=== PATIENT | male | born 1945 | race Caucasian/White ===

== ENCOUNTER 2016-12-20 10:46 | Emergency (ER) | payer MEDICARE ==
--- NOTE | 2016-12-20 21:23 | RAD ---
LEFT HIP TWO VIEWS: 12/20/16 No fracture was seen. All bones appear intact. Minor degenerative changes are present in the hip promise nt, but the hip joint space is normal in width. IMPRESSION: No acute traumatic change. POS: HOME
--- NOTE | 2016-12-20 21:24 | RAD ---
LEFT FEMUR 12/20/16 Various views cover the femur in the AP and lateral projections. No fracture was seen. No opaque for eign body was seen in the soft tissues. IMPRESSION: No acute findings. POS: HOME
== END 2016-12-20 11:59 | disposition home or self-care (01) ==
LOC: BURERS 10:46
DX: S70.12XA Contusion of left thigh, initial encounter (principal); E78.5 Hyperlipidemia, unspecified; I48.91 Unspecified atrial fibrillation; Z79.899 Other long term (current) drug therapy; W55.22XA Struck by cow, initial encounter

== ENCOUNTER 2019-12-08 11:05 | Outpatient (CLI) | payer MEDICARE ==
--- NOTE | 2019-12-08 14:03 | RAD ---
RIGHT HAND 3 VIEWS: DATE: 12/08/2019. FINDINGS: Degenerative changes are present in the 1st through 34d MCP joints consisting of some osteophytes and joint space narrowing. The 4th and 5th MCP joints are relatively unaffected. No fracture was seen. The carpal relationships appear normal. There may be a small cyst in the triquetrum. IMPRESSION: Degenerative changes as noted, particularly in the 1st through 3rd metacarpophalangeal joints. I can not confirm any actual erosions at this time. POS: HOME
--- NOTE | 2019-12-08 14:04 | RAD ---
RIGHT WRIST 3 VIEWS: DATE: 12/08/2019. FINDINGS: No fracture was seen. Some degenerative changes are present in the 1st MCP joint without obvious ero sions. The carpal bones were unremarkable in appearance. IMPRESSION: No acute finding. POS: HOME
== END 2019-12-08 11:06 | disposition home or self-care (01) ==
LOC: BURRAD 11:05
PROVIDERS: ATTEND Nurse Practitioner
DX: M79.644 Pain in right finger(s) (principal); M19.041 Primary osteoarthritis, right hand

== ENCOUNTER 2020-06-17 12:10 | Emergency (ER) | payer MEDICARE ==
[2020-06-17 12:46] LABS: #Basophils 0.1 thou/uL (0.0-0.2); #Eosinphils 0.2 thou/uL (0.0-0.7); #Lymphocytes 1.1 thou/uL (1.20-3.40); #Monocytes 0.6 thou/uL (0.11-0.59); #Neutrophils 11.1 thou/uL (1.40-6.50); %Basophils 0.9 % (0.0-1.0); %Eosinophils 1.8 % (0.0-10.0); %Lymphocytes 8.6 % (21.0-51.0); %Monocytes 4.4 % (0.0-10.0); %Neutrophils 84.2 % (42.0-75.0); Hemoglobin 16.2 g/dL (14.0-18.0); Mean Corpuscular HGB CONC 33.5 g/dL (32.0-36.0); Mean Corpuscular Hemoglobin 30.7 pg (27.0-31.0); Mean Corpuscular Volume 91.8 fL (78.0-98.0); Mean Platelet Volume 7.1 fL (7.4-10.4); Platelet Count 187 thou/uL (130-400); RBC Distribution Width 12.7 % (11.5-14.5); Red Blood Cell (RBC) Count 5.27 mill/uL (4.70-6.10); White Blood Cell (WBC) Count 13.2 thou/uL (4.8-10.8)
[2020-06-17 13:00] LABS: Bilirubin Negative (Negative); Blood, Urine Trace (Negative); Clarity Slightly Cloudy (Clear); Glucose, Urine (Dipstick) Negative (Negative); Ketone, Urine Negative (Negative); Leukocyte Trace (Negative); Nitrite Negative (Negative); Protein, Urine (Dipstick) Negative (Neg-Trace); Urobilinogen 0.2 mg/dL (Less than 2); pH, Urine 5.5 (5.0-9.0)
[2020-06-17 13:02] LABS: ALT (SGPT) 25 U/L (8-55); AST (SGOT) 35 U/L (5-34); Albumin 3.9 g/dL (3.4-4.8); Alkaline Phosphatase 56 U/L (40-110); Anion Gap 15 mmol/L (10-20); BUN (Urea Nitrogen) 27 mg/dL (8.4-25.7); Calc. Creatinine Clearance 0 mL/min (70-130); Calcium 8.7 mg/dL (7.8-10.44); Carbon Dioxide 26 mmol/L (23-31); Chloride 103 mmol/L (98-107); Globulin 2.9 g/dL (2.4-3.5); Glucose 151 mg/dL (83-110); Lipase 27 U/L (8-78); Potassium 5.5 mmol/L (3.5-5.1); Protein, Total 6.8 g/dL (5.8-8.1); Sodium 138 mmol/L (136-145)
[2020-06-17 13:18] LABS: RBC/HPF 0-3 HPF (0-3); WBC/HPF 0-3 HPF (0-3)
[2020-06-17 13:19] LABS: Bacteria/HPF None Seen HPF (None Seen); Sperm/HPF 1+ HPF (None Seen); Squamous Epithelial 0-3 HPF (0-3)
--- NOTE | 2020-06-17 14:00 | CT ---
CT OF THE BRAIN WITHOUT CONTRAST: 06/17/[address] was done following trauma. The ventricles are normal in size with no shift. No intr acranial bleeding or extra-axial hematoma was seen. There is no sign of mass, edema, or stroke. The v isible paranasal sinuses are clear. The skull appears intact. IMPRESSION: No acute intracranial findings. Preliminary report called to Dr. Barrett at 1341 on 06/17/20. POS: HOME
[2020-06-17] MEDS ORDERED: Acetaminophen 500 MG TAB ONE (14:03)
--- NOTE | 2020-06-17 14:09 | CT ---
CT CHEST, ABDOMEN AND PELVIS WITH CONTRAST: 06/17/[address] of the chest, abdomen and pelvis was done with IV contrast following trauma. The contrast w as substantially reduced due to a slightly GFR. CT OF THE THORAX: Spiral CT of the thorax shows a nondisplaced fracture of the left 7th rib anterolaterally. There is s ome soft tissue swelling over it. A few equivocal lines were seen near the costochondral junction of the right 6th rib which may or may not be significant. There was no evidence of pneumothorax, pleural effusion, or parenchymal contusion. The lungs were clear except for some minor areas of dependent a telectasis. In addition, one sees separation of the costochondral junction of the first rib from the manubrium on the left side. This is best displayed on axial slices 20 and 21. This is a immediately below the ta rnoclavicular joint. There is no displacement of either sternoclavicular joint, though the one on the left may be marginally wider than the right. There is certainly no displacement, however. The remain teresa of the sternum and the left ribs appeared intact. The thoracic spine showed no acute fracture, on ly degenerative changes. CT ABDOMEN AND PELVIS: The liver, spleen, pancreas, gallbladder, adrenal glands, kidneys and aorta were unremarkable with no acute traumatic findings visible. There was no sign of laceration or hematoma to any major organ. Th e left 7th rib fracture overlies a portion of the liver, but the liver in this location appears ange l. There is probably at least one and possibly two cysts in the left kidney, the largest measuring 1. 4 cm. Ultrasound would be needed to confirm the cystic nature of it. This could be done electively. CT of the pelvis shows no pelvic masses, hemorrhage, or other traumatic change. The hips and bony pel vis appear intact. The SI joints appear normal. No lumbar spine fractures were seen, however, there i s a bulging partially calcified disc at L3-L4 protruding posteriorly, almost certainly longstanding. The prostate is quite large. It is 5.4 cm wide. IMPRESSION: 1. Nondisplaced fracture of the right 7th rib anterolaterally. 2. Separation at the costochondral junction of the left first rib. Left sternoclavicular joint i s slightly wider than the right, but there is no displacement at all. No other left sided rib fractur es were seen. 3. No evidence of laceration or hematoma to any major organ. 4. Probable left renal cyst. 5. Prostatic enlargement. Findings discussed with Dr. Barrett at 1341 on 06/17/20. POS: HOME
[2020-06-17] MEDS ORDERED: Iopamidol 370 76% 100 ML VIAL ONE (14:46)
[2020-06-17 14:52] LABS: Anion Gap 15 mmol/L (10-20); BUN (Urea Nitrogen) 26 mg/dL (8.4-25.7); Calc. Creatinine Clearance 0 mL/min (70-130); Calcium 8.7 mg/dL (7.8-10.44); Carbon Dioxide 24 mmol/L (23-31); Chloride 104 mmol/L (98-107); Glucose 134 mg/dL (83-110); Potassium 4.4 mmol/L (3.5-5.1); Sodium 139 mmol/L (136-145)
== END 2020-06-17 15:26 | disposition home or self-care (01) ==
LOC: BURERS 12:10
DX: S22.43XA Multiple fractures of ribs, bilateral, initial encounter for closed fracture (principal); I25.10 Atherosclerotic heart disease of native coronary artery without angina pectoris; I48.91 Unspecified atrial fibrillation; E78.5 Hyperlipidemia, unspecified; Z79.899 Other long term (current) drug therapy; W55.29XA Other contact with cow, initial encounter
CPT/HCPCS: 36415; 70450; 71260; 74177; 80053; 81003; 81015; 83690; 85025; 93005; Q9967

== ENCOUNTER 2022-06-01 09:01 | Emergency (ER) | payer MEDICARE | END 2022-06-01 09:53 | disposition home or self-care (01) | LOC: BURERS 09:01 | DX: J22 Unspecified acute lower respiratory infection (principal); I25.10 Atherosclerotic heart disease of native coronary artery without angina pectoris; E78.5 Hyperlipidemia, unspecified; Z79.899 Other long term (current) drug therapy | CPT/HCPCS: 71045; J7620 ==

== ENCOUNTER 2025-04-01 10:15 | Outpatient (CLI) | payer MEDICARE | END 2025-04-01 10:16 | disposition home or self-care (01) | LOC: BURRAD 10:15 | PROVIDERS: ATTEND Family Medicine | DX: M25.551 Pain in right hip (principal); M16.11 Unilateral primary osteoarthritis, right hip ==